=== PATIENT | female | born 1950 | race Native Hawaiian/Other Pacific Islander ===

== ENCOUNTER 2016-10-18 13:21 | Outpatient (CLI) | payer BC | END 2016-10-18 23:06 | disposition home or self-care (01) | LOC: RAD 13:21 | DX: M25.562 Pain in left knee (principal) ==

== ENCOUNTER 2017-05-16 15:13 | Outpatient (CLI) | payer BC | END 2017-05-16 19:39 | disposition home or self-care (01) | LOC: RAD 15:13 | DX: M25.571 Pain in right ankle and joints of right foot (principal) ==

== ENCOUNTER 2017-12-21 09:04 | Outpatient (CLI) | payer OTHER, BC ==
[2017-12-21 09:50] LABS: POTASSIUM 4.1 mmol/L (3.6-5.2)
[2017-12-21 10:31] LABS: PLATELET COUNT 281 K/uL (152-353)
[2017-12-21 10:44] LABS: PARTIAL THROMBOPLASTIN TIME 24.1 SECONDS (24.5-33.6)
== END 2017-12-21 18:04 | disposition home or self-care (01) ==
LOC: LABW 09:04
PROVIDERS: Orthopaedic Surgery
DX: Z01.810 Encounter for preprocedural cardiovascular examination (principal); Z01.812 Encounter for preprocedural laboratory examination; Z01.811 Encounter for preprocedural respiratory examination; Z51.81 Encounter for therapeutic drug level monitoring
CPT/HCPCS: 36415; 80048; 85027; 85610; 85730; 93005

== ENCOUNTER 2018-01-23 12:09 | Outpatient (CLI) | payer OTHER, BC ==
[2018-01-23 12:27] LABS: PLATELET COUNT 285 K/uL (152-353)
== END 2018-01-23 20:47 | disposition home or self-care (01) ==
LOC: LABW 12:09
PROVIDERS: Anesthesiology
DX: Z01.818 Encounter for other preprocedural examination (principal); I10 Essential (primary) hypertension
CPT/HCPCS: 36415; 80048; 85027

== ENCOUNTER 2019-07-30 11:51 | Outpatient (CLI) | payer OTHER, BC ==
[2019-07-30 12:38] LABS: PLATELET COUNT 282 K/uL (152-353)
[2019-07-30 12:53] LABS: POTASSIUM 4.4 mmol/L (3.6-5.2)
== END 2019-07-30 19:17 | disposition home or self-care (01) ==
LOC: LAB 11:51
PROVIDERS: Internal Medicine
DX: Z00.00 Encounter for general adult medical examination without abnormal findings (principal); I10 Essential (primary) hypertension; Z79.899 Other long term (current) drug therapy
CPT/HCPCS: 80053; 80061; 81000; 83036; 84439; 84443; 85027

== ENCOUNTER 2019-08-08 11:59 | Day surgery (SDC) | payer OTHER, BC ==
[2019-08-08 13:23] LABS: PLATELET COUNT 314 K/uL (152-353)
[2019-08-08 13:30] LABS: POTASSIUM 3.9 mmol/L (3.6-5.2)
== END 2019-08-08 16:10 | disposition home or self-care (01) ==
LOC: OR 11:59
PROVIDERS: Pain Medicine Interventional Pain Medicine
PROC: 0DBK8ZZ Excision of Ascending Colon, Via Natural or Artificial Opening Endoscopic (ICD-10-PCS; principal; 2019-08-08)
PROC: 0DBE8ZZ Excision of Large Intestine, Via Natural or Artificial Opening Endoscopic (ICD-10-PCS; 2019-08-08)
DX: C18.2 Malignant neoplasm of ascending colon (principal); K57.30 Diverticulosis of large intestine without perforation or abscess without bleeding; K64.8 Other hemorrhoids; Z12.11 Encounter for screening for malignant neoplasm of colon; D50.8 Other iron deficiency anemias
CPT/HCPCS: 80053; 85027; J2001; J2250; J2405; J2704

== ENCOUNTER 2019-09-06 12:58 | Outpatient (CLI) | payer OTHER, BC ==
[2019-09-06 13:38] LABS: PLATELET COUNT 305 K/uL (152-353)
== END 2019-09-06 20:19 | disposition home or self-care (01) ==
LOC: LABW 12:58
PROVIDERS: Internal Medicine Medical Oncology
DX: C18.2 Malignant neoplasm of ascending colon (principal)
CPT/HCPCS: 36415; 80053; 82378; 85027

== ENCOUNTER 2020-01-15 09:46 | Outpatient (CLI) | payer OTHER, BC ==
[2020-01-15 11:22] LABS: PLATELET COUNT 286 K/uL (152-353); POTASSIUM 4.2 mmol/L (3.6-5.2)
== END 2020-01-15 22:32 | disposition home or self-care (01) ==
LOC: LABW 09:46
PROVIDERS: Internal Medicine Medical Oncology
DX: C18.2 Malignant neoplasm of ascending colon (principal)
CPT/HCPCS: 36415; 80053; 82378; 85027

== ENCOUNTER 2020-04-03 08:23 | Outpatient (CLI) | payer OTHER, BC ==
[2020-04-03 09:46] LABS: PLATELET COUNT 251 K/uL (152-353)
[2020-04-03 10:41] LABS: POTASSIUM 4.8 mmol/L (3.6-5.2)
== END 2020-04-03 21:49 | disposition home or self-care (01) ==
LOC: MAMMO 08:23
PROVIDERS: Internal Medicine
DX: Z13.820 Encounter for screening for osteoporosis (principal); Z12.31 Encounter for screening mammogram for malignant neoplasm of breast; M85.88 Other specified disorders of bone density and structure, other site; Z79.899 Other long term (current) drug therapy; E11.9 Type 2 diabetes mellitus without complications
CPT/HCPCS: 36415; 80053; 80061; 81000; 83036; 84439; 84443; 85027

== ENCOUNTER 2020-04-15 08:20 | Outpatient (CLI) | payer OTHER, BC ==
[2020-04-15 08:58] LABS: POTASSIUM 4.3 mmol/L (3.6-5.2)
[2020-04-15 09:48] LABS: PLATELET COUNT 289 K/uL (152-353)
== END 2020-04-15 19:04 | disposition home or self-care (01) ==
LOC: LABW 08:20
PROVIDERS: Internal Medicine Medical Oncology
DX: C18.2 Malignant neoplasm of ascending colon (principal)
CPT/HCPCS: 36415; 80053; 82378; 82728; 83540; 83550; 85027

== ENCOUNTER 2021-01-19 07:54 | Outpatient (CLI) | payer OTHER, BC ==
[2021-01-19 09:15] LABS: PLATELET COUNT 239 K/uL (152-353)
[2021-01-19 09:59] LABS: POTASSIUM 4.5 mmol/L (3.6-5.2)
== END 2021-01-19 19:22 | disposition home or self-care (01) ==
LOC: US 07:54
PROVIDERS: ATTEND Internal Medicine
DX: R92.8 Other abnormal and inconclusive findings on diagnostic imaging of breast (principal); E11.9 Type 2 diabetes mellitus without complications
CPT/HCPCS: 36415; 80053; 80061; 81000; 82043; 83036; 84439; 84443; 85027

== ENCOUNTER 2022-06-30 12:58 | Outpatient (CLI) | payer OTHER, BC ==
[2022-06-30 13:36] LABS: PLATELET COUNT 232 K/uL (152-353)
[2022-06-30 14:00] LABS: POTASSIUM 4.6 mmol/L (3.6-5.2)
== END 2022-06-30 19:13 | disposition home or self-care (01) ==
LOC: LAB 12:58
PROVIDERS: ATTEND Internal Medicine
DX: E11.9 Type 2 diabetes mellitus without complications (principal); Z00.00 Encounter for general adult medical examination without abnormal findings; R82.90 Unspecified abnormal findings in urine
CPT/HCPCS: 80053; 80061; 81000; 82043; 82306; 82570; 83036; 84439; 84443; 85027; 87077; 87086; 87088; 87186

== ENCOUNTER 2022-07-14 08:46 | Outpatient (CLI) | payer OTHER, BC | END 2022-07-14 19:28 | disposition home or self-care (01) | LOC: MAMMO 08:46 | PROVIDERS: ATTEND Internal Medicine | DX: Z12.31 Encounter for screening mammogram for malignant neoplasm of breast (principal) ==